=== PATIENT | female | born 2000 | race Caucasian/White ===

== ENCOUNTER 2022-07-01 03:40 | Emergency (ER) | payer BC, SELFPAY ==
[2022-07-01 04:05] VITALS: BP 130/82; PULSE 113; RESP 20; TEMP 36.6; O2SAT 100
[2022-07-01 04:16] LABS: Basophils Absolute Auto 0.1 K/mm3 (0.0-0.1); Eosinophils Percent Auto 0.3 % (0-4.4); Hematocrit 41.4 % (37.0-47.0); Hemoglobin 14.3 g/dL (12.0-15.0); Immature Granulocyte Absolute 0.03 K/mm3 (0.00-0.031); Immature Granulocyte Percent A 0.4 % (0-0.5); Lymphocytes Absolute Auto 1.62 K/mm3 (0.9-3.2); Lymphocytes Percent Auto 22.2 % (18.3-44.2); Mean Corpuscular HGB Conc 34.5 g/dl (32-36); Mean Corpuscular Hemoglobin 30.6 pg (26-34); Mean Corpuscular Volume 88.7 fl (80-100); Mean Platelet Volume 10.3 fl (7.4-10.4); Monocytes Absolute Auto 0.5 K/mm3 (0.1-0.6); Monocytes Percent Auto 6.7 % (2.6-8.5); Neutrophils Absolute Auto 5.1 K/mm3 (1.3-6.7); Neutrophils Percent Auto 69.4 % (45.5-73.1); Platelet Count Result 270 k/mm3 (150-375); Red Blood Count 4.67 M/mm3 (4.2-5.4); Red Cell Distribution Width 12.1 % (11.5-14.5); White Blood Count 7.3 K/mm3 (4.5-10.0)
--- NOTE | 2022-07-01 04:17 | ED.GENADULT ---
HPI - General Adult General Chief complaint: Alcohol Stated complaint: alcohol Time Seen by Provider: 07/01/22 03:45 History of Present Illness HPI narrative: Patient is a 21-year-old female who presents ER with nausea and vomiting. Patient was out drinking alcohol tonight. According to roommate patient was attempting to finish off a bottle of vodka during the [employer] party. She was then out at the bar and had at least 3 more vodka cranberries as well as a beer. Patient has become anxious and is crying. She is complaining of nausea and has vomited. She has dried emesis on her close. No reports of trauma or injury. Related Data Allergies Allergy/AdvReac Type Severity Reaction Status Date / Time No Known Allergies Allergy Verified 07/01/22 04:24 Review of Systems Review of Systems: ROS unobtainable: Yes unobtainable due to mental status (Anxious and intoxicated) PMFSH Past Medical History Medical History (Updated 07/01/22 @ 07:02 by Sukhi Zafar MD) Anxiety Surgical History Surgical History (Updated 07/01/22 @ 04:19 by Sukhi Zafar MD) No pertinent past surgical history Social History Social History (Updated 07/01/22 @ 04:19 by Sukhi Zafar MD) Alcohol intake: current Exam Narrative: GENERAL: Crying and intoxicated, well-nourished. HEAD: Normocephalic, atraumatic. EYES: PERRL and EOMI. ENT: Mucous membranes moist. CHEST: Clear to auscultation. No respiratory distress. HEART: Regular rate and rhythm. Normal peripheral pulses. ABDOMEN: Soft, nontender, nondistended. EXTREMITIES: Normal range of motion. No edema. SKIN: Warm, dry, no rash. NEURO: Alert and oriented x3. PSYCH: Anxious and tearful. Course Course Emergency Course: Patient resting comfortably. No longer vomiting and is no longer anxious. Discharge home. Vital Signs Vital signs: Vital Signs Temperature 97.9 F 07/01/22 04:05 Pulse Rate 113 H 07/01/22 04:05 Respiratory Rate 20 07/01/22 04:05 Blood Pressure 130/82 07/01/22 04:05 Pulse Oximetry 100 07/01/22 04:05 Oxygen Delivery Room Air 07/01/22 04:05 Temperature 97.9 F 07/01/22 04:05 Pulse Rate 113 H 07/01/22 04:05 Respiratory Rate 07/01/22 04:05 Blood Pressure 130/82 07/01/22 04:05 Pulse Oximetry 100 07/01/22 04:05 Oxygen Delivery Room Air 07/01/22 04:05 Medical Decision Making Vital Signs Vital Signs: Vital Signs Temperature 97.9 F 07/01/22 04:05 Pulse Rate 113 H 07/01/22 04:05 Respiratory Rate 07/01/22 04:05 Blood Pressure 130/82 07/01/22 04:05 Pulse Oximetry 100 07/01/22 04:05 Oxygen Delivery Room Air 07/01/22 04:05 Temperature 97.9 F 07/01/22 04:05 Pulse Rate 113 H 07/01/22 04:05 Respiratory Rate 07/01/22 04:05 Blood Pressure 130/82 07/01/22 04:05 Pulse Oximetry 100 07/01/22 04:05 Oxygen Delivery Room Air 07/01/22 04:05 Lab Data Result diagrams: 07/01/22 04:06 07/01/22 04:06 Labs: Lab Results 07/01/22 07/01/22 Range/Units 04:06 04:06 WBC 7.3 (4.5-10.0) K/mm3 RBC 4.67 (4.2-5.4) M/mm3 Hgb 14.3 (12.0-15.0) g/dL Hct 41.4 (37.0-47.0) % MCV 88.7 (80-100) fl MCH 30.6 (26-34) pg MCHC 34.5 (32-36) g/dl RDW 12.1 (11.5-14.5) % Plt Count 270 (150-375) k/mm3 MPV 10.3 (7.4-10.4) fl Immature Gran % (Auto) 0.4 (0-0.5) % Neut % (Auto) 69.4 (45.5-73.1) % Lymph % (Auto) 22.2 (18.3-44.2) % Kaufman % (Auto) 6.7 (2.6-8.5) % Eos % (Auto) 0.3 (0-4.4) % Baso % (Auto) 1.0 (0.2-1.2) % Lymph # (Auto) 1.62 (0.9-3.2) K/mm3 Kaufman # (Auto) 0.5 (0.1-0.6) K/mm3 Eos # (Auto) 0.0 (0-0.3) K/mm3 Baso # (Auto) 0.1 (0.0-0.1) K/mm3 Abs Immat Gran (auto) 0.03 (0.00-0.031) K/mm3 Absolute Neuts (auto) 5.1 (1.3-6.7) K/mm3 Absolute Nucleated RBC 0.0 (0.0-0.012) K/mm3 Nucleated RBC % 0.0 (0.0-0.2) % Sodium 142 (137-145) mmol/L Potassium 3.4 (3.4-5.0) m
[2022-07-01 04:25] LABS: Alanine Aminotransferase 12 U/L (6-35); Albumin Level 4.9 g/dL (3.5-5.1); Alkaline Phosphatase 64 U/L (38-126); Anion Gap 15 mmol/L (8-16); Aspartate Amino Transferase 22 U/L (14-36); Bilirubin,Total 0.2 mg/dL (0.2-1.3); Blood Urea Nitrogen 7 mg/dL (7-17); Calcium 9.2 mg/dL (8.4-10.2); Carbon Dioxide 22 mmol/L (22-30); Chloride 105 mmol/L (98-107); Estimated Glomerular Filt Rate > 60; Glucose 117 mg/dL (65-110); Lipase 66 U/L (23-300); Potassium 3.4 mmol/L (3.4-5.0); Sodium 142 mmol/L (137-145)
[2022-07-01] MEDS: ONDANSETRON INJ 4 MG/2 ML VIAL IV PUSH (04:25)
[2022-07-01] MEDS: SODIUM CHLORIDE 0.9% IV 1,000 ML 999 ML IV CONT (04:25)
[2022-07-01] MEDS: BENZOCAINE/MENTHOL (*BKC) 18 EA LOZENGE 1 LOZENGE PO (05:10)
[2022-07-01 07:05] VITALS: BP 111/78; PULSE 82; RESP 16; O2SAT 98
[2022-07-01 07:18] VITALS: BP 100/60; PULSE 78; RESP 18; O2SAT 98
== END 2022-07-01 07:20 | disposition home or self-care (01) ==
PROVIDERS: Emergency Provider Emergency Medicine
DX: F10.129 Alcohol abuse with intoxication, unspecified (principal); F41.9 Anxiety disorder, unspecified
CPT/HCPCS: 36415; 80053; 83690; 85025; 96361; 96374; 99284; A9270; J2405; J7030